=== PATIENT | female | born 1975 | race Caucasian/White ===

== ENCOUNTER 2020-08-17 07:45 | Outpatient (CLI) | payer OTHER, SELFPAY ==
--- NOTE | 2020-08-17 06:00 | DI.RAD_ITS ---
EXAM: XR PAIN CLINIC LUMBAR SP 2V CLINICAL HISTORY: DX:Lumbar Radiculopathy. TECHNIQUE: Fluoroscopy was provided for the referring physician for guidance with performing injecti on procedure. COMPARISON: No exams were available for comparison FINDINGS: Please see procedure note for details. RADIATION DOSE DELIVERED: Fluoro time 16.0 seconds. Radiation dose 5.50 mGy.
[2020-08-17 08:00] VITALS: BP 130/91; PULSE 84; RESP 17; TEMP 37.3; O2SAT 98
[2020-08-17] MEDS: methylPREDNISolone ACETATE 80 MG/ML VIAL IJ (08:30)
[2020-08-17] MEDS: Omnipaque 240 MG/ML 50 ML BTL IJ (08:30)
[2020-08-17 08:34] VITALS: BP 144/89; PULSE 90; RESP 15; O2SAT 100
--- NOTE | 2020-08-17 08:34 | PDOC.PAIN ---
Pain Clinic Procedure Note Procedure Note Procedure Note: Lumbar Epidural Steroid Injection Procedure Note pre operative diagnosis: lumbar radiculopathy post operative diagnosis: same as above COMMENTS: patient was evaluated by Ms Christy Garrett APRN in our pain clinic, patient has low back pain with radiation down left lower extremity. MRI L spine showed left paracentral disc herniation at L5-S1. COLE GUZMAN has been referred to the [facility] for lumbar epidural steroid injection. The patient was greeted by the nurse who verified patients name and . Patient was then taken to the fluoroscopy suite. The patient was interviewed and the medial record reviewed. There were no medical, pharmacologic, radiographic, or other structural contraindications to attempting fluoroscopically guided lumbar epidural steroid injection. Risks and expected side effects as well as potential benefits of the procedure were reviewed and voiced concerns expressed. The patient consent form was signed and witnessed. Standard patient time-out procedure was performed. The patient was placed in the prone position on the fluoroscopy table and automated blood pressure cuff and pulse oximeter applied. The skin entry point for entering/approaching the epidural space by a L5-S1 and marked. Following thorough chlorhexadine preparation of the skin and draping and 1% lidocaine infiltration of the skin entry point and subcutaneous tissues, a 18 gauge Touhy needle was placed under fluoroscopic guidance and with loss of resistance technique into the epidural space. Needle tip placement and depth were aided and confirmed by fluoroscopy. There was no paresthesia or return of blood or CSF through the needle. 1 cc's of Omnipaque 240 was injected with clear epidural spread confirmed with fluoroscopy. 80mg depomedrol was injected. There was not any unusual discomfort expressed by COLE GUZMAN. Patient's vital signs were stable throughout the procedure and were as recorded in nursing records. Follow up plans and appointments were discussed with patient. Post procedure instruction was given as documented in nursing records and having met discharge criteria and was discharged from the [facility]. COMMENTS: If this procedure is helpful, it can be completed up to 3 times per 12 months. Guy Quevedo MD Pain Management
== END 2020-08-17 07:46 | disposition home or self-care (01) ==
PROVIDERS: PCP Family Medicine; Visit Provider Internal Medicine
DX: M54.16 Radiculopathy, lumbar region (principal)
CPT/HCPCS: 62323; 72100; J1040; Q9967

== ENCOUNTER 2021-01-04 09:33 | Outpatient (CLI) | payer OTHER, SELFPAY ==
--- NOTE | 2021-01-04 06:00 | DI.RAD_ITS ---
Exam(s) XR PAIN CLINIC LUMBAR SP 2V EXAM: XR PAIN CLINIC LUMBAR SP 2V CLINICAL HISTORY: Dx: Lumbar Radiculopathy. TECHNIQUE: 2D and realtime digital imaging was performed. CONTRAST MATERIAL: Oral barium Oral water soluble contrast was administered. COMPARISON: No exams were available for comparison FINDINGS: Fluoroscopy was provided during pain management therapy. Submitted images reveal left-sided needle at L5 level with contrast injection. See procedure report for details. Total fluoroscopy time 24.5 seconds IMPRESSION: RADIATION DOSE DELIVERED: steven Neal=7.98 mGy
[2021-01-04 09:40] VITALS: BP 148/92; PULSE 85; RESP 18; TEMP 36.9; O2SAT 98
--- NOTE | 2021-01-04 09:58 | PDOC.PAIN ---
Pain Clinic Procedure Note Procedure Note Procedure Note: LUMBAR / SACRAL TRANSFORAMINAL INJECTION COLE GUZMAN has been referred to the [facility] for a transforaminal nerve root block and steroid injection. Pre-operative diagnosis: lumbar radiculopathy Post-operative diagnosis: same as above COMMENTS: patient has left paracentral disc herniation at L5-S1 resulting in predominantly left leg symptoms respecting the L5/S1 dermatomal distribution. Patient reported transient 3-4 days of excellent pain relief from previous LESI, and she returns for a targeted left L5 TFESI Patient was interviewed and the medical record reviewed. There were no medical, pharmacologic, radiographic or other structural contraindications to attempting fluoroscopically guided transforaminal nerve root block and epidural steroid injection. Risks and expected side effects as well as potential benefit of the procedure were reviewed and voiced concerns addressed. The printed consent form was signed and witnessed. Standard time-out procedure was performed. Patient was placed in the prone position on the fluoroscopy table and automated blood pressure cuff and pulse oximeter applied. Fluoroscopy was utilized to identify the right neural foramen between L5 and S1 . A skin mario was made for the needle insertion site. A Chlorhexadine prep was carried out, and sterile drapes were applied. Local anesthesia was achieved in the skin and subcutaneous tissues. A 22 gauge 3.5'' spinal needle curved tip spinal needle was then inserted, advanced with fluoroscopic guidance into the neural foramen, confirmed on the lateral view. After negative aspiration, 1 ml of Omnipaque 240 was injected confirming position in A/P and lateral views. This showed a good spread of dye transforaminally into the epidural space. There was no vascular update with contrast injection under continuous fluoroscopy and digital substraction. 15 mg of Dexamethasone was injected, followed by 0.5 ml of 1% Xylocaine flush for the nerve root block, as well. There was no unusual discomfort expressed.The needle was withdrawn. The patient tolerated the procedure well. A Band-Aid was applied. Vital signs were stable throughout the procedure and were as recorded in nursing records. If given, dosages of intravenous drugs for anxiolysis and analgesia were documented in nursing records. Follow up plans and appointments were discussed. Post procedure instruction was given as documented in nursing records and patient was discharged in the care of an identified street flusher driver. COMMENTS: pre-VAS score 5/10, post-VAS score 3/10. Guy Quevedo MD Pain Management CC: Bravo Kendrick
[2021-01-04 10:31] VITALS: BP 152/89; PULSE 101; RESP 19; O2SAT 98
[2021-01-04] MEDS: Omnipaque 240 MG/ML 50 ML BTL IJ (10:32)
[2021-01-04] MEDS: Dexamethasone Sod. Phos./Pres-Free 10 MG/ML VIAL IJ (10:33)
== END 2021-01-04 09:34 | disposition home or self-care (01) ==
LOC: PC 09:33
PROVIDERS: PCP Family Medicine; Visit Provider Internal Medicine
DX: M54.16 Radiculopathy, lumbar region (principal)
CPT/HCPCS: 64483; 64493; 72100; Q9967